=== PATIENT | male | born 1975 | race Caucasian/White ===

== ENCOUNTER 2025-03-05 22:52 | Emergency (ER) | payer OTHER, BC ==
[2025-03-05] MEDS ORDERED: Sodium Chloride 0.9% 10 ML Syringe FLUSH PRN (22:58)
[2025-03-05 23:07] LABS: BASOPHILS ABSOLUTE AUTO 0.06 K/uL (0.00-0.20); BASOPHILS PERCENT AUTO 0.9 % (0.0-2.0); EOSINOPHILS ABSOLUTE AUTO 0.12 K/uL (0.00-0.50); EOSINOPHILS PERCENT AUTO 1.8 % (0.0-5.0); IMMATURE GRAN ABSOLUTE AUTO 0.04 10^3/uL (0.00-0.04); IMMATURE GRAN PERCENT AUTO 0.6 % (0.0-0.4); LYMPHOCYTES ABSOLUTE AUTO 2.77 K/uL (0.50-3.50); LYMPHOCYTES PERCENT AUTO 41.8 % (10.0-50.0); MONOCYTES ABSOLUTE AUTO 0.44 K/uL (0.00-1.00); MONOCYTES PERCENT AUTO 6.6 % (2.0-14.0); NEUTROPHILS ABSOLUTE AUTO 3.19 K/uL (1.40-7.00); NEUTROPHILS PERCENT AUTO 48.3 % (45.0-80.0); PLATELET COUNT,PLT 180 K/uL (150-350); RED BLOOD CELL COUNT 4.79 M/uL (4.33-5.41); RED CELL DISTRIBUTION WIDTH 12.4 % (11.2-14.1); WHITE BLOOD CELL COUNT,WBC 6.6 K/uL (4.0-10.2)
[2025-03-05 23:33] LABS: INR 1.0 (0.9-1.1); PTT,PARTIAL THROMBOPLSTIN TIME 23.0 SEC (23.8-34.4)
[2025-03-05 23:36] LABS: ALANINE AMINOTRANSFERASE,ALT 41 U/L (12-78); ASPARTATE AMNIOTRANSFERASE,AST 42 U/L (15-37); BILIRUBIN TOTAL 0.3 mg/dL (0.2-1.0); BLOOD UREA NITROGEN,BUN 4 mg/dL (7-18); CARBON DIOXIDE,CO2 20.8 mmol/L (21.0-32.0); CHLORIDE,CL 94 mmol/L (98-107); CREATININE 1.03 mg/dL (0.51-1.17); ETHANOL BLOOD MEDICAL 0.326 g/dL (0.000-0.080); GLUCOSE RANDOM 126 mg/dL (70-99); POTASSIUM,K 3.5 mmol/L (3.5-5.1); PROTEIN TOTAL,TP 7.6 g/dL (6.4-8.2); SODIUM,NA 130 mmol/L (136-145)
[2025-03-05 23:37] LABS: ESTIMATED GFR 89 mL/min (>=60)
== END 2025-03-06 01:50 ==
LOC: LL.ED 22:52
DX: Z04.1 Encounter for examination and observation following transport accident (principal)
CPT/HCPCS: 36415; 70450; 71045; 72125; 72170; 80053; 80307; 83690; 85025; 85610; 85730; 99284; 99285